=== PATIENT | male | born 1965 | race Caucasian/White ===

== ENCOUNTER 2018-02-06 05:29 | Day surgery (SDC) | payer BC ==
[~2018-02-06] VITALS: Ht 185.4 cm; Wt 97.1 kg
--- NOTE | ~2018-02-06 | O ---
[facility] [place] [address] OPERATIVE REPORT Name: SARAI LANCE Room #: DEP [employer].#: [id number] Admission: 02/06/18 Attend Phys: Wilfred Spaulding MD Discharge: 02/06/18 Date of : 69 Report #: [id number] THIS REPORT FOR: //name// CC: Wilfred Lyman DATE OF SERVICE: 02/06/2018 PREOPERATIVE DIAGNOSIS: Left knee lateral tibial plateau fracture with displacement. POSTOPERATIVE DIAGNOSIS: Left knee lateral tibial plateau fracture with displacement. PROCEDURE: Open reduction internal fixation, left knee lateral tibial plateau fracture with allograft and lateral buttress plate fixation. SURGEON: Wilfred Spaulding MD INDICATIONS: This active 52-year-old gentleman fell skiing, injuring the left knee last week. X-rays confirm an impacted lateral tibial plateau fracture. We have discussed treatment options and elected to go ahead with surgical repair. DESCRIPTION OF PROCEDURE: The patient was taken to the operating room, where he was placed under general anesthesia. Prophylactic intravenous antibiotics were administered. The left knee and leg were meticulously prepped and draped and a thigh tourniquet applied and inflated to 300 mmHg. An anterior lateral skin incision was made, exposing the anterior lateral aspect of the proximal tibia. The muscle was elevated and the fracture at the anterior lateral tibia was identified. There was a mildly displaced cortical fracture which could be opened slightly, allowing better visualization to the metaphyseal region and access beneath the compressed lateral tibial plateau. A C-arm was used to visualize the area and a small bone tamp was used to gradually elevate the articular surface back to essentially anatomic position. This left a moderate sized void beneath the area of fracture. This was filled in with about 20-25 mL of cancellous bone chips and 5 mL of DBM putty. Serum was used as the bone chips were gently added and impacted from below which seemed to elevate and support the articular surface in a very satisfactory fashion. Once this seemed to be filled and packed nicely with satisfactory support and stability, a lateral locking tibial plate was then applied, 3 screws were placed under C-arm guidance just beneath the area of fracture, depression which seemed to add to overall stability. Two more distal screws were placed in the plate to add stability. The overall alignment and position of the fracture fragments appeared to be satisfactory and stability seemed to be adequate. At this point, the tourniquet was deflated. Good hemostasis was established. The fascia was closed with 0 Vicryl. The subcutaneous tissues were closed with 2-[address] [address] OPERATIVE REPORT Name: SARAI LANCE Room #: DEP [employer].#: [id number] Admission: 02/06/18 Attend Phys: Wilfred Spaulding MD Discharge: 02/06/18 Date of : 69 Report #: [id number] The skin was closed with skin jose armando. A sterile dressing was applied and a supportive plaster splint was placed holding the knee in neutral position. The patient was then awakened and returned to recovery room in good condition. He is hoping for discharge home today. Pending his level of comfort and mobility, we may be able to discharge him. I will plan for crutches and nonweightbearing for the coming 2 weeks and we will see him back in my office for followup and suture removal at that point. <ELECTRONICALLY SIGNED> By: Wilfred Spaulding MD 02/09/18 1101 [id number] Wilfred Spaulding MD /nt
[~2018-02-06 05:29] MED LIST: HYDROCODON-ACE1 EAC8 PO; IBUPROFEN 400400 M2 PO; PROAIR HFA8.5 GM INH; SINGULAIR 10 MG10 M1 PO; UNICOMPLEX M TA1 TA1 PO
== END 2018-02-06 12:40 | disposition home or self-care (01) ==
LOC: TBA 05:29 → OR 05:29 → TBA 05:31 → OR 09:33
DX: S82.122A Displaced fracture of lateral condyle of left tibia, initial encounter for closed fracture (principal); J45.909 Unspecified asthma, uncomplicated; K21.9 Gastro-esophageal reflux disease without esophagitis; Z98.890 Other specified postprocedural states; Z79.891 Long term (current) use of opiate analgesic; X58.XXXA Exposure to other specified factors, initial encounter; Y93.89 Activity, other specified; Y92.89 Other specified places as the place of occurrence of the external cause; Y99.8 Other external cause status
CPT/HCPCS: 50010; 50386; 51014; 51412; 51439; 53347; 55430; 56525; 57091